=== PATIENT | male | born 1990 | race Caucasian/White ===

== ENCOUNTER 2017-04-01 01:56 | Emergency (ER) | payer SELFPAY ==
[~2017-04-01] VITALS: Ht 175.3 cm; Wt 169.5 kg
[2017-04-01 02:48] LABS: HEMATOCRIT 41.9 % (39.0-50.0); HEMOGLOBIN 15.1 g/dl (14.0-18.0); IMMATURE GRANULOCYTES 0.6 % (0.0-1.0); MEAN CELL VOLUME 82.5 fL CALC (80.0-100.0); MEAN CORPUSCULAR HGB 29.7 pG CALC (26.0-32.0); NEUT# 3.51 thou/uL (1.82-7.42); RED BLOOD COUNT 5.08 mill/uL (4.70-6.10); RED CELL DISTRI WIDTH 12.4 % (11.5-15.5)
[2017-04-01 02:54] LABS: ALBUMIN 4.4 g/dL (3.2-5.0); ALKALINE PHOSPHATASE 77 u/l (38-126); ANION GAP 17 (6-22 (CALC)); BILIRUBIN, TOTAL 0.4 mg/dL (0.0-1.4); BUN 14 mg/dL (9-20); BUN/CREATININE RATIO 20 (12-20 (CALC)); CALCIUM 9.5 mg/dL (8.4-10.2); CARBON DIOXIDE 23 mmol/l (22-30); CHLORIDE 105 mmol/l (95-108); CREATININE 0.7 mg/dL (0.7-1.3); GFR > 60 ML/MIN (>=60 (CALC)); GFR FOR AFR.AMER. > 60 ML/MIN (>=60 (CALC)); GLUCOSE 252 mg/dL (75-110); POTASSIUM 4.6 mmol/l (3.5-5.1); SGOT/AST 38 u/l (17-59); SGPT/ALT 99 u/l (21-72); SODIUM 140 mmol/l (137-146); TOTAL PROTEIN 7.9 g/dL (6.3-8.2)
[2017-04-01 03:05] LABS: URINE BILIRUBIN - DIPSTICK NEGATIVE (NEGATIVE); URINE BLOOD DIPSTICK NEGATIVE (NEGATIVE); URINE CLARITY CLEAR; URINE COLOR YELLOW; URINE GLUCOSE - DIPSTICK >=1000 mg/dL (NEGATIVE); URINE KETONE NEGATIVE (NEGATIVE); URINE LEUK ESTERASE NEGATIVE (NEGATIVE); URINE NITRITE - DIPSTICK NEGATIVE (Negative); URINE PROTEIN - DIPSTICK NEGATIVE (NEG-TRACE); URINE SPECIFIC GRAVITY 1.025; URINE UROBILINOGEN - DIPSTICK 0.2 E.U./dL (0.2)
[2017-04-01 03:09] LABS: BARBITURATES NEGATIVE (NEGATIVE); COCAINE NEGATIVE (NEGATIVE); METHADONE NEGATIVE (NEGATIVE); OXCYCODONE NEGATIVE (NEGATIVE); TETRAHYDROCANNABIONOL NEGATIVE (NEGATIVE); TRICYLIC ANTIDEPRESSANTS NEGATIVE (NEGATIVE)
[2017-04-01 03:40] VITALS: BP 111/56
== END 2017-04-01 03:40 | disposition home or self-care (01) | DRG 639 ==
LOC: ED 01:56
PROVIDERS: Emergency Medicine
DX: E11.65 Type 2 diabetes mellitus with hyperglycemia (principal)

== ENCOUNTER 2017-08-23 23:21 | Emergency (ER) | payer SELFPAY ==
[~2017-08-23] VITALS: Ht 175.3 cm; Wt 149.2 kg
[2017-08-23 23:34] VITALS: BP 141/85
== END 2017-08-23 23:40 | disposition left against medical advice (07) | DRG 951 ==
LOC: ED 23:21 → LWOBS 23:40
DX: Z91.19 Patient's noncompliance with other medical treatment and regimen (principal)

== ENCOUNTER 2017-08-29 19:40 | Emergency (ER) | payer MEDICAID ==
[~2017-08-29] VITALS: Ht 175.3 cm; Wt 147.2 kg
[2017-08-29 20:23] LABS: INFLUENZA A POSITIVE (NONE DETECT); INFLUENZA B NONE DETECTED (NONE DETECT)
[2017-08-29] MEDS ORDERED: TAM75CAP PO (20:43)
[2017-08-29 21:20] VITALS: BP 135/78
== END 2017-08-29 21:21 | disposition home or self-care (01) | DRG 153 ==
LOC: ED 19:40
PROVIDERS: Emergency Medicine
DX: J11.1 Influenza due to unidentified influenza virus with other respiratory manifestations (principal); R05 Cough; R50.9 Fever, unspecified; R51 Headache

== ENCOUNTER 2017-12-01 12:25 | Emergency (ER) | payer MEDICAID ==
[~2017-12-01] VITALS: Ht 175.3 cm; Wt 153.0 kg
[~2017-12-01 12:25] MED LIST: TAM75CAP PO
[2017-12-01 13:14] LABS: HEMATOCRIT 41.8 % (39.0-50.0); HEMOGLOBIN 15.1 g/dl (14.0-18.0); IMMATURE GRANULOCYTES 0.6 % (0.0-1.0); MEAN CELL VOLUME 82.9 fL CALC (80.0-100.0); MEAN CORPUSCULAR HGB CONC 36.1 g/L CALC (32.0-36.0); NEUT# 4.36 thou/uL (1.82-7.42); RED BLOOD COUNT 5.04 mill/uL (4.70-6.10); RED CELL DISTRI WIDTH 12.5 % (11.5-15.5)
[2017-12-01 13:27] LABS: ANION GAP 22 (6-22 (CALC)); BUN 17 mg/dL (9-20); BUN/CREATININE RATIO 21 (12-20 (CALC)); CARBON DIOXIDE 23 mmol/l (22-30); CHLORIDE 96 mmol/l (95-108); CREATININE 0.8 mg/dL (0.7-1.3); GFR > 60 ML/MIN (>=60 (CALC)); GFR FOR AFR.AMER. > 60 ML/MIN (>=60 (CALC)); POTASSIUM 4.8 mmol/l (3.5-5.1); SODIUM 136 mmol/l (137-146)
[2017-12-01] MEDS ORDERED: METFORMIN500 M1 PO (14:02)
[2017-12-01 14:54] VITALS: BP 128/75
== END 2017-12-01 14:54 | disposition home or self-care (01) | DRG 639 ==
LOC: ED 12:25
PROVIDERS: Family Medicine
DX: E11.65 Type 2 diabetes mellitus with hyperglycemia (principal)

== ENCOUNTER 2017-12-22 13:05 | Inpatient (IN) | payer MEDICAID ==
[2017-12-22] VITALS (13 sets, daily range): BP systolic 115–145; BP diastolic 60–92
[~2017-12-22] VITALS: Ht 175.3 cm; Wt 134.0 kg
[~2017-12-22 13:05] MED LIST changes: +METFORMIN500 M1 PO
[2017-12-22 14:07] LABS: HEMATOCRIT 43.4 % (39.0-50.0); HEMOGLOBIN 15.8 g/dl (14.0-18.0); IMMATURE GRANULOCYTES 1.1 % (0.0-1.0); MEAN CORPUSCULAR HGB 29.9 pG CALC (26.0-32.0); MEAN CORPUSCULAR HGB CONC 36.4 g/L CALC (32.0-36.0); NEUT# 3.84 thou/uL (1.82-7.42); RED BLOOD COUNT 5.29 mill/uL (4.70-6.10); RED CELL DISTRI WIDTH 12.9 % (11.5-15.5)
[2017-12-22 14:08] LABS: URINE BILIRUBIN - DIPSTICK NEGATIVE (NEGATIVE); URINE BLOOD DIPSTICK NEGATIVE (NEGATIVE); URINE COLOR YELLOW; URINE GLUCOSE - DIPSTICK >=1000 mg/dL (NEGATIVE); URINE KETONE >=80 mg/dL (NEGATIVE); URINE LEUK ESTERASE NEGATIVE (NEGATIVE); URINE NITRITE - DIPSTICK NEGATIVE (Negative); URINE PH 5.5 (4.5-8.0); URINE PROTEIN - DIPSTICK NEGATIVE (NEG-TRACE); URINE UROBILINOGEN - DIPSTICK 0.2 E.U./dL (0.2)
[2017-12-22 14:10] LABS: URINE CLARITY CLEAR
[2017-12-22 14:17] LABS: ALBUMIN 4.5 g/dL (3.2-5.0); ALKALINE PHOSPHATASE 103 u/l (38-126); BILIRUBIN, TOTAL 0.7 mg/dL (0.0-1.4); BUN 20 mg/dL (9-20); BUN/CREATININE RATIO 24 (12-20 (CALC)); CHLORIDE 97 mmol/l (95-108); CREATININE 0.8 mg/dL (0.7-1.3); GFR > 60 ML/MIN (>=60 (CALC)); GFR FOR AFR.AMER. > 60 ML/MIN (>=60 (CALC)); SGOT/AST 34 u/l (17-59); SGPT/ALT 78 u/l (21-72); SODIUM 134 mmol/l (137-146); TOTAL PROTEIN 8.4 g/dL (6.3-8.2)
[2017-12-22 14:25] LABS: ANION GAP 27 (6-22 (CALC)); CARBON DIOXIDE 15 mmol/l (22-30); POTASSIUM 5.3 mmol/l (3.5-5.1)
[2017-12-22] MEDS ORDERED: LEVEMIR100 UNIT/M IJ (14:57)
[2017-12-22 20:42] LABS: ANION GAP 23 (6-22 (CALC)); BUN 14 mg/dL (9-20); BUN/CREATININE RATIO 26 (12-20 (CALC)); CARBON DIOXIDE 12 mmol/l (22-30); CHLORIDE 106 mmol/l (95-108); CREATININE 0.6 mg/dL (0.7-1.3); GFR > 60 ML/MIN (>=60 (CALC)); GFR FOR AFR.AMER. > 60 ML/MIN (>=60 (CALC)); POTASSIUM 4.1 mmol/l (3.5-5.1); SODIUM 137 mmol/l (137-146)
[2017-12-23] VITALS (20 sets, daily range): BP systolic 100–139; BP diastolic 50–74
[2017-12-23 00:23] LABS: ANION GAP 21 (6-22 (CALC)); BUN 13 mg/dL (9-20); BUN/CREATININE RATIO 19 (12-20 (CALC)); CARBON DIOXIDE 15 mmol/l (22-30); CHLORIDE 105 mmol/l (95-108); CREATININE 0.7 mg/dL (0.7-1.3); GFR > 60 ML/MIN (>=60 (CALC)); GFR FOR AFR.AMER. > 60 ML/MIN (>=60 (CALC)); POTASSIUM 3.9 mmol/l (3.5-5.1); SODIUM 137 mmol/l (137-146)
[2017-12-23 04:08] LABS: HEMATOCRIT 37.5 % (39.0-50.0); IMMATURE GRANULOCYTES 1.2 % (0.0-1.0); MEAN CELL VOLUME 81.3 fL CALC (80.0-100.0); MEAN CORPUSCULAR HGB 29.3 pG CALC (26.0-32.0); NEUT# 2.78 thou/uL (1.82-7.42); RED BLOOD COUNT 4.61 mill/uL (4.70-6.10)
[2017-12-23 04:09] LABS: HEMOGLOBIN 13.5 g/dl (14.0-18.0)
[2017-12-23 04:38] LABS: ANION GAP 17 (6-22 (CALC)); BUN 14 mg/dL (9-20); BUN/CREATININE RATIO 22 (12-20 (CALC)); CARBON DIOXIDE 16 mmol/l (22-30); CHLORIDE 108 mmol/l (95-108); CREATININE 0.6 mg/dL (0.7-1.3); GFR > 60 ML/MIN (>=60 (CALC)); GFR FOR AFR.AMER. > 60 ML/MIN (>=60 (CALC)); POTASSIUM 3.9 mmol/l (3.5-5.1); SODIUM 137 mmol/l (137-146)
[2017-12-23 08:42] LABS: ANION GAP 17 (6-22 (CALC)); BUN 13 mg/dL (9-20); BUN/CREATININE RATIO 20 (12-20 (CALC)); CARBON DIOXIDE 17 mmol/l (22-30); CHLORIDE 107 mmol/l (95-108); CREATININE 0.6 mg/dL (0.7-1.3); GFR > 60 ML/MIN (>=60 (CALC)); GFR FOR AFR.AMER. > 60 ML/MIN (>=60 (CALC)); POTASSIUM 3.9 mmol/l (3.5-5.1); SODIUM 137 mmol/l (137-146)
[2017-12-23] MEDS ORDERED: NOVOLOG100 UNIT/M SC (20:08)
[2017-12-23] MEDS ORDERED: LEVEMIR100 UNIT/M SC (20:08)
== END 2017-12-23 20:45 | disposition home or self-care (01) | DRG 639 ==
LOC: ED 13:05 → ED-I 14:32 → ED 15:30 → ICU 15:31
PROVIDERS: Emergency Medicine; Nurse Practitioner; ADMIT Internal Medicine; ATTEND Internal Medicine
DX: E11.10 Type 2 diabetes mellitus with ketoacidosis without coma (principal); Z79.4 Long term (current) use of insulin
CPT/HCPCS: J1650

== ENCOUNTER 2018-03-06 00:14 | Emergency (ER) | payer SELFPAY ==
[~2018-03-06 00:14] MED LIST changes: +LEVEMIR100 UNIT/M IJ; +LEVEMIR100 UNIT/M SC; +NOVOLOG100 UNIT/M SC
== END 2018-03-06 00:27 | disposition left against medical advice (07) | DRG 951 ==
LOC: ED 00:14 → LWOBS 00:27 → ED 00:27
DX: Z91.19 Patient's noncompliance with other medical treatment and regimen (principal)

== ENCOUNTER 2018-10-24 14:46 | Inpatient (IN) | payer OTHER ==
[2018-10-24] VITALS (9 sets, daily range): BP systolic 94–121; BP diastolic 47–71
[~2018-10-24] VITALS: Ht 172.7 cm; Wt 120.0 kg
--- NOTE | 2018-10-24 15:10 | NUR ---
Pt to room # 9 via W/C for bedside triage. Blood sugar 423. MLP notified. Call bustillos within reach.
--- NOTE | 2018-10-24 15:40 | NUR ---
EKG TO DR CHENEY.
[2018-10-24 16:09] LABS: HEMATOCRIT 39.2 % (39.0-50.0); HEMOGLOBIN 14.4 g/dl (14.0-18.0); IMMATURE GRANULOCYTES 0.6 % (0.0-5.0); MEAN CELL VOLUME 84.8 fL CALC (80.0-100.0); MEAN CORPUSCULAR HGB 31.2 pG CALC (26.0-32.0); MEAN CORPUSCULAR HGB CONC 36.7 g/L CALC (32.0-36.0); NEUT# 4.49 thou/uL (1.82-7.42); RED BLOOD COUNT 4.62 mill/uL (4.70-6.10)
[2018-10-24 16:11] LABS: URINE BILIRUBIN - DIPSTICK SMALL (NEGATIVE); URINE BLOOD DIPSTICK NEGATIVE (NEGATIVE); URINE COLOR YELLOW; URINE GLUCOSE - DIPSTICK >=1000 mg/dL (NEGATIVE); URINE KETONE >=80 mg/dL (NEGATIVE); URINE LEUK ESTERASE NEGATIVE (NEGATIVE); URINE NITRITE - DIPSTICK NEGATIVE (Negative); URINE PH 5.5 (4.5-8.0); URINE PROTEIN - DIPSTICK NEGATIVE (NEG-TRACE); URINE UROBILINOGEN - DIPSTICK 0.2 E.U./dL (0.2)
[2018-10-24 16:16] LABS: ALBUMIN 3.9 g/dL (3.2-5.0); ALKALINE PHOSPHATASE 152 u/l (38-126); BILIRUBIN, TOTAL 0.7 mg/dL (0.0-1.4); BUN 12 mg/dL (9-20); BUN/CREATININE RATIO 20 (12-20 (CALC)); CHLORIDE 100 mmol/l (95-108); CREATININE 0.6 mg/dL (0.7-1.3); GFR > 60 ML/MIN (>=60 (CALC)); GFR FOR AFR.AMER. > 60 ML/MIN (>=60 (CALC)); LIPASE 130 u/l (23-300); POTASSIUM 4.5 mmol/l (3.5-5.1); SGOT/AST 12 u/l (17-59); SODIUM 132 mmol/l (137-146); TOTAL PROTEIN 7.4 g/dL (6.3-8.2)
[2018-10-24 16:19] LABS: BARBITURATES NEGATIVE (NEGATIVE); COCAINE NEGATIVE (NEGATIVE); METHADONE NEGATIVE (NEGATIVE); OXCYCODONE NEGATIVE (NEGATIVE); TETRAHYDROCANNABIONOL NEGATIVE (NEGATIVE); TRICYLIC ANTIDEPRESSANTS NEGATIVE (NEGATIVE)
[2018-10-24 16:20] LABS: ANION GAP 27 (6-22 (CALC)); CARBON DIOXIDE 10 mmol/l (22-30)
--- NOTE | 2018-10-24 16:30 | NUR ---
BEDRESTING. WATCHING TV. ALERT.
--- NOTE | 2018-10-24 17:35 | NUR ---
TO ICU VIA STRETCHER AT THIS TIME. 2ND AND 3RD BAGS OF IV FLUIDS ARE ALMOST COMPLETTE. INSULIN AND NS INFUSING
[2018-10-24 18:16] LABS: ANION GAP 21 (6-22 (CALC)); BUN 11 mg/dL (9-20); BUN/CREATININE RATIO 18 (12-20 (CALC)); CARBON DIOXIDE 13 mmol/l (22-30); CHLORIDE 103 mmol/l (95-108); CREATININE 0.6 mg/dL (0.7-1.3); GFR > 60 ML/MIN (>=60 (CALC)); GFR FOR AFR.AMER. > 60 ML/MIN (>=60 (CALC)); POTASSIUM 4.1 mmol/l (3.5-5.1); SODIUM 132 mmol/l (137-146)
--- NOTE | 2018-10-24 18:19 | NUR ---
PT ARRIVES TO ICU-1 VIA STRETCHER FROM ICU, INSULIN DRIP AT 4 UNITS HOURLY. BOLUSES COMPLETED, 2 LITERS. PT IS AWAKE, ALERT, ORIENTED X 3, HUNGRY.
--- NOTE | 2018-10-24 19:00 | NUR ---
REPORT GIVEN BY DANDRE LOPEZ. PATIENT RESTING IN BED WATCHING TV. ALERT AND ORIENTED. RESP EVEN AND UNLABORED. NO S/S OF DISTRESS NOTED. INSULIN DRIP 4UNITS/HR. NS AT [facility]. PLAN OF CARE DISCUSSED. FALL PRECAUTIONS IN PLACE. PATIENT INFORMED TO CALL WITH ANY QUESTIONS OR CONCERNS.
--- NOTE | 2018-10-24 19:05 | NUR ---
ACCU CHECK:250. INSULIN DRIP TITRATED 3 UNITS PER HOUR.
--- NOTE | 2018-10-24 19:39 | NUR ---
DKA PROTOCOL STARTED PER MD ORDERS.
[2018-10-24 20:34] LABS: ANION GAP 20 (6-22 (CALC)); BUN 9 mg/dL (9-20); BUN/CREATININE RATIO 19 (12-20 (CALC)); CARBON DIOXIDE 13 mmol/l (22-30); CHLORIDE 103 mmol/l (95-108); CREATININE 0.5 mg/dL (0.7-1.3); GFR > 60 ML/MIN (>=60 (CALC)); GFR FOR AFR.AMER. > 60 ML/MIN (>=60 (CALC)); POTASSIUM 3.7 mmol/l (3.5-5.1); SODIUM 133 mmol/l (137-146)
--- NOTE | 2018-10-24 21:25 | NUR ---
MD MADE AWARE OF CHANGES IN PATIENT LABWORK. NEW ORDERS GIVEN.
--- NOTE | 2018-10-24 23:09 | NUR ---
INSULIN DRIP STOPPED PER MD ORDERS.
[2018-10-25] VITALS (15 sets, daily range): BP systolic 91–122; BP diastolic 39–83
[2018-10-25 00:40] LABS: ANION GAP 17 (6-22 (CALC)); BUN 9 mg/dL (9-20); BUN/CREATININE RATIO 16 (12-20 (CALC)); CARBON DIOXIDE 16 mmol/l (22-30); CHLORIDE 105 mmol/l (95-108); CREATININE 0.6 mg/dL (0.7-1.3); GFR > 60 ML/MIN (>=60 (CALC)); GFR FOR AFR.AMER. > 60 ML/MIN (>=60 (CALC)); POTASSIUM 3.6 mmol/l (3.5-5.1); SODIUM 134 mmol/l (137-146)
--- NOTE | 2018-10-25 01:15 | NUR ---
PATIENT RESTING WITH EYES CLOSED. AT THE BEDSIDE. RESP EVEN ADN UNLABORED. NO S/S OF DISTRESS NOTED.
--- NOTE | 2018-10-25 03:01 | NUR ---
PATIENT RESTING WITH EYES CLOSED. RESP EVEN AND UNLABORED. NO S/S OF DISTRESS NOTED.
[2018-10-25 04:58] LABS: ANION GAP 19 (6-22 (CALC)); BUN 10 mg/dL (9-20); BUN/CREATININE RATIO 16 (12-20 (CALC)); CARBON DIOXIDE 15 mmol/l (22-30); CHLORIDE 106 mmol/l (95-108); CREATININE 0.6 mg/dL (0.7-1.3); GFR > 60 ML/MIN (>=60 (CALC)); GFR FOR AFR.AMER. > 60 ML/MIN (>=60 (CALC)); POTASSIUM 3.8 mmol/l (3.5-5.1); SODIUM 136 mmol/l (137-146)
--- NOTE | 2018-10-25 05:42 | NUR ---
INSULIN DRIP RESTARTED 3 UNITS/HR
[2018-10-25 06:59] LABS: MAGNESIUM 1.6 mg/dL (1.6-2.3)
--- NOTE | 2018-10-25 07:15 | NUR ---
pt resting in bed with eyes closed; no apparent distress noted; easily aroused to touch; visitor at bedside; assessment completed at this time; pt alert and oriented; denies pain; no n/v noted; resp even and unlabored; lungs clear; skin color wnl; ra; hr reg; strong pulses; no edema noted; bilat knee high fred hose intact; sr on monitor; abd soft/ obese with bs present; no bm noted per proposal lead writer; no urine to inspect at this time; urinal at bedside; #20 flushed and patent to rw/ ivf infusing without complication; #20 flushed and patent to lh/ insulin gtt at 3units/hr; no rendess or edema noted at sites; accucheck of 282; plan of care/ am meds/ diet/ hourly accuchecks explained; call light within reach; will continue to monitor
--- NOTE | 2018-10-25 08:00 | NUR ---
resting in bed with eyes closed; spouse at bedside; no apparent distress noted; iv patent; accucheck 269; insulin gtt continues at 3 units/hr; sr on monitor; call light within reach; will continue to monitor
[2018-10-25 08:11] LABS: ANION GAP 18 (6-22 (CALC)); BUN 11 mg/dL (9-20); BUN/CREATININE RATIO 23 (12-20 (CALC)); CARBON DIOXIDE 13 mmol/l (22-30); CHLORIDE 108 mmol/l (95-108); CREATININE 0.5 mg/dL (0.7-1.3); GFR > 60 ML/MIN (>=60 (CALC)); GFR FOR AFR.AMER. > 60 ML/MIN (>=60 (CALC)); POTASSIUM 3.6 mmol/l (3.5-5.1); SODIUM 135 mmol/l (137-146)
--- NOTE | 2018-10-25 09:12 | NUR ---
call placed to DIPIKA Herrmann in regards to levemir orders/insulin gtt; SLAT PICKLER informed per flex o writer operator insulin gtt was placed on hold last hs approx [phone]; informed levemir was administered at hs; informed pt diet is NPO; informed insulin gtt was restarted at 0545; informed mag level 1.6; informed pt strep + with no orders to treat; orders to be placed per BODY RECALL INSTRUCTOR
--- NOTE | 2018-10-25 09:23 | NUR ---
pt continues to rest with eyes closed; no apparent distress noted; awakened for am meds and to explained plan of care; ivf changed/ levemir administered/ insulin gtt to dc'd in 1 hour/ lunch will be provided; keno writer / runner attempting to update home med rec; pt denies taking any medications at home; call light within reach; will continue to monitor
--- NOTE | 2018-10-25 10:05 | NUR ---
awake sitting on side of bed; offers no complaints; spouse present at bedside; strep explained; iv patent; fluids infusing without complication; accucheck 235; insulin gtt continues at 3 units/hr; sr on monitor; diabetes compliance explained to pt and spouse; pt admits to NOT taking any medications for a year; states hga1c was 4+; pt explained hga1c is 11.0; call light within reach; will continue to monitor
[2018-10-25] MEDS ORDERED: AUGMENTIN875TAB PO (11:31)
[2018-10-25] MEDS ORDERED: LEVEMIR100 UNIT/M SC (11:32)
[2018-10-25 11:59] LABS: ANION GAP 17 (6-22 (CALC)); BUN 11 mg/dL (9-20); BUN/CREATININE RATIO 28 (12-20 (CALC)); CARBON DIOXIDE 14 mmol/l (22-30); CHLORIDE 108 mmol/l (95-108); CREATININE 0.4 mg/dL (0.7-1.3); GFR > 60 ML/MIN (>=60 (CALC)); GFR FOR AFR.AMER. > 60 ML/MIN (>=60 (CALC)); POTASSIUM 3.7 mmol/l (3.5-5.1); SODIUM 135 mmol/l (137-146)
--- NOTE | 2018-10-25 12:10 | NUR ---
awake in bed eating lunch; no apparent distress noted; offers no complaints; iv intact and patent; sr on monitor; call light within reach; will continue to monitor
--- NOTE | 2018-10-25 12:57 | NUR ---
pt tolerated meal well; no n/v noted; fluids stop as per verbal order
--- NOTE | 2018-10-25 13:15 | NUR ---
Dr Guerrero present at bedside to assess pt and discuss plan of care; educated pt in great detail on need for compliance in regards to diabetic medications;
[2018-10-25] MEDS ORDERED: NOVOLOG MIX SC ×2 (13:49→13:51)
[2018-10-25] MEDS ORDERED: [UNRECOGNIZED DRUG - SUPPLY] (14:04)
--- NOTE | 2018-10-25 14:05 | NUR ---
pt awake in bed; no apparent distress noted; pt offers no complaints; spouse at bedside; iv's removed with catheter tips intact; no redness or edema noted at sites; accucheck 284; pt noted with outside for at bedside; diet compliance explained; Dr Guerrero informed of accucheck results; orders received and discharge to continue; sr on monitor; will continue to monitor
--- NOTE | 2018-10-25 14:45 | NUR ---
Discharge instructions given. Patient verbalizes understanding of same. Discharged in stable condition via Wheelchair to Home with family. All belongings sent with pt.
== END 2018-10-25 14:55 | disposition home or self-care (01) | DRG 639 ==
LOC: ED 14:46 → ED-I 17:00 → ED 17:08 → ICU 17:09
PROVIDERS: ADMIT Internal Medicine; ATTEND Internal Medicine
DX: E11.10 Type 2 diabetes mellitus with ketoacidosis without coma (principal); J02.0 Streptococcal pharyngitis; T38.3X6A Underdosing of insulin and oral hypoglycemic [antidiabetic] drugs, initial encounter; Z79.4 Long term (current) use of insulin; Z91.11 Patient's noncompliance with dietary regimen; Z91.120 Patient's intentional underdosing of medication regimen due to financial hardship
CPT/HCPCS: J0561